=== PATIENT | male | born 1945 | race Caucasian/White ===

== ENCOUNTER → 2020-02-04 | Outpatient (CLI) | payer OTHER, BC ==
[~2020-02-04] VITALS: Ht 167.6 cm; Wt 93.4 kg
[~2020-02-04] MED LIST: ADVIL200 M1 PO; FLOMAX0.4 MG PO; LIPITOR 20 MG T20 M1 PO
--- NOTE | ~2020-02-04 | HPC ---
[facility] [address] [address] PAIN MANAGEMENT CONSULTATION Name: ART THORNTON Room #: REG TYRONE [facility]#: [id number] Admission: 02/04/20 Attend Phys: Miguel Woodard MD Discharge: Date of : 47 Report #: [id number] CC: Yasmani Woodard DATE OF SERVICE: 02/04/2020 CHIEF COMPLAINT: Low back pain with radiation into the legs. Neurogenic claudication and spinal stenosis. 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 Gomes. He has an MRI that shows L3-L4 spinal stenosis and has classic symptoms of radicular pain radiating into the L4, L5, S1 distribution. He remains active, plays golf, but feels pain in his legs when he is golfing. He also sees a lot of pain at night when he gets up to go to the bathroom. The pain is a deep aching sensation. He has some mild weakness sensations. MEDICATIONS: Atorvastatin, tamsulosin. He takes ibuprofen 600 mg before he plays golf and again at the turn at about 4 hour mair. We discussed the side effects of nonsteroidal anti-inflammatory drugs including GI, renal and cardiac. ALLERGIES: None. PAST MEDICAL HISTORY: Back surgery 40 years ago, looks like it was a laminectomy. Rotator cuff surgery in 2019. He has had a recent injection by Dr. Montiel in his left shoulder. REVIEW OF SYSTEMS: Positive for nocturia, fatigue and weakness in his legs consistent with neurogenic claudication. 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 Smokes half pack of cigarettes a day and has done so for 30 years, enjoys alcohol on a daily basis. Impacted pain score is 28. Highest mostly for sleep and walking with playing golf. Opioid risk tool is 0. PHYSICAL EXAMINATION: GENERAL: Pleasant gentleman, alert and oriented, no signs of depression or anxiety. VITAL SIGNS: Blood pressure of 138/75, heart rate 70, respirations 15, O2 sat 96. He is 5 feet 6 inches, 206 pounds, BMI is 33.3. NEUROLOGIC: Positive straight leg raising bilaterally in lower extremities. MRI report is reviewed and discussed with the patient. It shows evidence of spinal stenosis related to thickening of the ligamentum flavum, bilateral facet arthropathy and bulging of the L3-L4 disk. Other degenerative changes are also noted throughout the lumbar spine, but that seems to be the most significant area and consistent with his symptoms. IMPRESSION: Spinal stenosis with lumbar radiculopathy, neurogenic claudication. PROCEDURE: Epidural injection under fluoroscopic guidance, L3-L4. PROCEDURE NOTE: After both written and informed consent to include risk of spinal cord damage, increased pain, weakness and dural puncture, the patient was taken to the fluoroscopy suite, placed in the prone position. After sterile prep and drape, a skin wheal with lidocaine was raised. A 22-gauge epidural Tuohy needle was inserted in the midline at L3-L4 with good loss to resistance. Negative aspiration for cerebrospinal fluid or blood was noted. Then 1 mL of Omnipaque under biplanar fluoroscopy showed good spread within the epidural space. This was followed with 80 mg of triamcinolone plus 1 mL of 1.5% preservative-free Xylocaine, 0.5 mL Xylocaine was then injected to flush the needle; it was removed. The patient was monitored for an appropriate period of time and discharged in good and stable condition. By: [id number] Miguel Woodard MD /nt
[2020-02-04 11:31] VITALS: BP 138/75
--- NOTE | 2020-02-04 11:41 | NUR ---
Pain Clinic Assessment: 1. History of Osteoarthritis: PT SAYS YES History of Rheumatoid Arthritis: DENIES 2. Height: 5 ft. 6 in. 167.6 cm. Weight: 206.0 lb. oz. 93.441 kg. Patient's BMI: 33.3 3. Vital Signs: BP: 138/75 Pulse: 70 Resp: 15 Temp: 02 Sat: 96 ECG Mon: 4. Pain Intensity: 7 5. Fall Risk: Dizziness: Needs help standing or walking: Fallen in the last 3 months: Fall risk comments: 6. Patient on Blood Thinner: None 7. History of Hypertension: N 8. Opioid Therapy greater than 6 weeks: N Opiate Contract Signed: 9. Risk Assessment Tool Provided: 0 10. Functional Assessment Tool: 11. Recreational Drug Use: Drug Type: Tobacco Use: Current Every Day Smoker Tobacco Type: Cigarettes Amount or Packs/day: 1 How Many Years: Alcohol Use: Yes Frequency: Monthly Quant:
== END | disposition home or self-care (01) ==
LOC: PAIN 06:51
PROVIDERS: ATTEND Anesthesiology Pain Medicine
DX: M54.5 Low back pain (principal); M54.16 Radiculopathy, lumbar region; M48.062 Spinal stenosis, lumbar region with neurogenic claudication; F17.210 Nicotine dependence, cigarettes, uncomplicated; Z79.899 Other long term (current) drug therapy; Z98.890 Other specified postprocedural states; Z72.89 Other problems related to lifestyle